=== PATIENT | male | born 1965 | race Two or more races ===

== ENCOUNTER 2019-08-23 21:29 | Emergency (ER) | payer OTHER ==
[~2019-08-23] VITALS: Ht 162.6 cm; Wt 65.8 kg
--- NOTE | 2019-08-23 21:32 | NUR ---
PT BIB [employer] FOR MEDICAL CLEARANCE FOR BOOKING C/O HIGH BLOODPRESSURE, LLQ PAIN, PT IS AAOX4, NOT IN RESPIRATORY DISTRESS, HOOKED TO MONITOR, KEPT RESTED AND COMFORTABLE, WILL CONTINUE TO MONITOR, AWAITING ER MD FOR EVAL.
--- NOTE | 2019-08-23 22:17 | NUR ---
AT BEDSIDE FOR EVAL.
[2019-08-23] MEDS ORDERED: AMLODIPINE BESYLATE 5 MG TABLET ONE (22:22)
[2019-08-23] MEDS ORDERED: AMLODIPINE BESYLATE 5 MG TABLET PO ONE (22:30)
[2019-08-23 22:34] VITALS: BP 150/102
--- NOTE | 2019-08-23 22:34 | NUR ---
Patient discharged in custody in stable condition. Written and verbal after care instructions given. Patient verbalizes understanding of instruction.
== END 2019-08-23 22:35 ==
LOC: ER 21:31
DX: I10 Essential (primary) hypertension (principal); Z88.0 Allergy status to penicillin
CPT/HCPCS: 99283; J7030